=== PATIENT | female | born 1975 | race Caucasian/White ===

== ENCOUNTER → 2016-05-20 | Outpatient (CLI) | payer BC ==
[~2016-05-20] MED LIST: CELEXA40 MG PO; ESCITALOPRAM PO; MOTRIN 800800 MG/TAB PO; NOVOLOG FLEX100 U/ML SC; PERCOCET 325 MG1 TA2 PO; PERCOCET 5/321 UDTAB PO; PRENATAL1 TA1 PO
== END ==
LOC: MC.RAD 08:42
DX: Z12.31 Encounter for screening mammogram for malignant neoplasm of breast (principal); N63 Unspecified lump in breast

== ENCOUNTER → 2016-06-03 | Outpatient (CLI) | payer BC | LOC: MC.RAD 09:54 | DX: D48.61 Neoplasm of uncertain behavior of right breast (principal) ==

== ENCOUNTER → 2016-06-10 | Outpatient (CLI) | payer BC | LOC: MC.RAD 12:57 | DX: D24.1 Benign neoplasm of right breast (principal) | CPT/HCPCS: 30634 ==

== ENCOUNTER → 2017-08-22 | Outpatient (CLI) | payer BC | LOC: MC.RAD 09:36 | DX: Z12.31 Encounter for screening mammogram for malignant neoplasm of breast (principal) ==

== ENCOUNTER 2018-02-14 12:33 | Outpatient (RCR) | payer BC | END 2018-02-24 23:08 | disposition home or self-care (01) | LOC: WSPT 12:33 | DX: S82.891D Other fracture of right lower leg, subsequent encounter for closed fracture with routine healing (principal); R07.89 Other chest pain; Z96.7 Presence of other bone and tendon implants; Z98.890 Other specified postprocedural states ==

== ENCOUNTER 2018-03-23 09:00 | Outpatient (RCR) | payer BC | END 2018-06-11 | disposition home or self-care (01) | LOC: WSPT | DX: S93.401D Sprain of unspecified ligament of right ankle, subsequent encounter (principal); R07.89 Other chest pain ==

== ENCOUNTER → 2018-09-13 | Outpatient (CLI) | payer BC | LOC: MC.RAD 08:38 | DX: Z12.31 Encounter for screening mammogram for malignant neoplasm of breast (principal) ==

== ENCOUNTER → 2019-11-12 | Outpatient (CLI) | payer BC | LOC: MC.RAD 08:25 | DX: Z12.31 Encounter for screening mammogram for malignant neoplasm of breast (principal) ==

== ENCOUNTER 2019-12-29 04:09 | Emergency (ER) | payer BC ==
[~2019-12-29] VITALS: Ht 170.2 cm; Wt 95.0 kg
[2019-12-29 04:23] VITALS: TEMP 98.5
[2019-12-29 04:32] LABS: COLLECTION METHOD CLEAN CATCH
[2019-12-29 04:42] LABS: PH 6 (5-8); SQUAMOUS EPITHELIAL None Seen /hpf; URINE APPEARANCE Hazy; URINE BACTERIA Rare /hpf; URINE BILIRUBIN Negative (NEGATIVE); URINE BLOOD 3+ (NEGATIVE); URINE COLOR Yellow; URINE GLUCOSE Negative (NEGATIVE); URINE KETONE Negative (NEGATIVE); URINE LEUKOCYTE ESTERASE 2+ (NEGATIVE); URINE NITRATE Negative (NEGATIVE); URINE PROTEIN(semi-quant) 1+ (NEGATIVE); URINE RBC 0-2 /hpf; URINE UROBILINOGEN Negative (NEGATIVE)
[2019-12-29] MEDS ORDERED: PYRIDIUM200 M1 PO (05:03)
[2019-12-29] MEDS ORDERED: MACROBID 1100 MG/CAP PO (05:03)
[2019-12-29 05:19] VITALS: BP 119/76; PULSE 63
== END 2019-12-29 05:19 | disposition home or self-care (01) ==
LOC: COL.ER 04:09
PROVIDERS: Emergency Medicine
DX: N39.0 Urinary tract infection, site not specified (principal)

== ENCOUNTER → 2023-06-14 | Outpatient (CLI) | payer BC ==
[~2023-06-14] MED LIST changes: +MACROBID 1100 MG/CAP PO; +PYRIDIUM200 M1 PO
== END ==
LOC: MC.RAD 13:58 → COL.RAD 14:00
DX: N63.20 Unspecified lump in the left breast, unspecified quadrant (principal)

== ENCOUNTER → 2023-12-20 | Outpatient (CLI) | payer BC | LOC: MC.RAD 13:53 | DX: N63.20 Unspecified lump in the left breast, unspecified quadrant (principal) ==